=== PATIENT | male | born 1995 | race Caucasian/White ===

== ENCOUNTER 2017-12-26 01:53 | Emergency (ER) | payer BC, SELFPAY ==
[2017-12-26 01:58] VITALS: BP 145/106; PULSE 106; RESP 18; TEMP 36.8; O2SAT 97
--- NOTE | 2017-12-26 02:12 | ED.GENADUL_ITS ---
Disposition Clinical Impression: Nausea and vomiting, Toxic effect of mushrooms eaten as food Disposition: HOME Condition: Improving Instructions: Acute Nausea and Vomiting (ED) Additional Instructions: Poison control identified the mushrooms as toxic but self-limiting. You should continue to feel better throughout the day. Would stick with clear liquids for the first part of today. You may take Zofran provided if needed for recurrent nausea. Return to ED for worsening abdominal pain, recurrent/prolonged vomiting , jaundice, fever. Referrals: Quinton Goode MD [Primary Care Provider] - Medical Decision Making - Lab Data Results reviewed for labs ordered during visit: Yes - EKG Data -: EKG Interpreted by Me Interpretation: normal EKG - Medical Decision Making Poison control has identified the mushroom as corin hurtado and reports that it can cause severe nausea and vomiting for about 8 hours. It is otherwise self -limiting and requires supportive care only. IV is established and LR as well as Zofran given. EKG was obtained prior to Zofran being given because of his psychiatric medications. Patient's QT interval is normal. His EKG is sinus rhythm at [address] changes. Laboratory studies obtained. Patient's laboratory studies show a low potassium at 3.1. Otherwise unremarkable labs. Patient is better and tolerating p.o. after the Zofran. He does not wish to try to take potassium pill. Potassium should correct itself now that the vomiting has resolved. Patient to be discharged home as he is tolerating p.o. He will be given a Zofran ODT tab to use later today if needed. Return to ED for fever, worsening abdominal pain, persistent vomiting, jaundice. History of Present Illness - General Chief complaint: Nausea/Vomit/Diar Stated complaint: FOOD POISENING Time Seen by Provider: 12/26/17 02:10 Source: patient, family Mode of arrival: ambulatory Limitations: no limitations - History of Present Illness Initial comments: Patient presents to ED with nausea/vomiting and abdominal discomfort. Patient consumed wild mushrooms picked out of his family's yard. Everyone that consumed the mushroom is here in the ED ill. They have already sent pictures to poison control who has identified the mushroom and referred them all into us for evaluation. Mushrooms were consumed around 8 PM. Symptoms started around 11 PM. - Related Data Escitalopram [Lexapro] 10 mg PO DAILY tab-cap 06/02/17 Bupropion HCl [Wellbutrin Xl] 150 mg PO DAILY 12/26/17 Allergies Allergy/AdvReac Type Severity Reaction Status Date / Time No Known Allergies Allergy Unverified 12/26/17 02:18 Review of Systems Constitutional: denies: chills, fever Eyes: denies: vision change ENT: denies: congestion Respiratory: denies: cough, shortness of breath Cardiovascular: denies: chest pain Gastrointestinal: abdominal pain, nausea, vomiting. denies: diarrhea Genitourinary: denies: dysuria, hematuria Musculoskeletal: denies: back pain, arthralgia, myalgia Skin: denies: rash Neurological: denies: headache, weakness, numbness, paresthesias Past Medical History - Past Medical History Medical history: no medical history Surgical history: no surgical history Psychiatric history: anxiety, depression - Social History Smoking status: current everyday smoker Drug use: marijuana General Exam - General Limitations: no limitations General appearance: alert, in no apparent distress - Head Head exam: Present: atraumatic, normocephalic - Eye Eye exam: Absent: scleral icterus - Neck Neck exam: Present: normal inspection - Respiratory Respiratory exam: Present: normal lung sounds bilaterally - Cardiovascular Cardiovascular Exam: Present: normal rhythm, tachycardia, normal heart sounds - GI/Abdominal GI/Abdominal exam: Present: soft. Absent: distended, tenderness, guarding - Extremities Exam Extremities exam: Absent: tenderness, calf tenderness - Neurological Exam Neurological exam: Present: alert, oriented X3, CN II-XII intact. Absent: motor sensory deficit - Psychiatric Psychiatric exam: Present: normal affect, normal mood - Skin Skin exam: Present: warm, dry, intact Course Vital Signs - 24 hr 12/26/17 01:58 Temperature 98.2 F Pulse 106 H Respiratory 18 Rate Blood Pressure 145/106 Pulse Oximetry 97
[2017-12-26 02:22] LABS: Abs Immature Grans 0.04 k/cumm (0.0-0.09); Absolute Basophil Count 0.01 k/cumm (0.0-0.2); Absolute Eosinophil Count 0.01 k/cumm (0.0-0.7); Absolute Monocyte Count 0.43 k/cumm (0.11-0.7); Absolute Neutrophil Count 10.05 k/cumm (1.2-6.7); Basophils % 0.1; Eosinophils % 0.1; HCT 46.4 % (40.0-50.0); HGB 15.7 g/dL (13.5-17.5); Immature Grans % 0.3; Mean Corp. HGB Concentration 33.8 g/dL (32.0-36.0); Mean Corpuscular Hemoglobin 30.7 pg (27.0-33.0); Mean Corpuscular Volume 90.6 fL (80-95); Mean Platelet Volume 10.1 fL (8.0-11.0); Monocytes % 3.6; Neutrophils % 84.9; Platelet Count 286 x1000/uL (130-400); RBC 5.12 m/cumm (4.50-6.00); RBC Distribution Width 12.7 % (11.8-14.1); White Blood Cell Count 11.84 k/cumm (4.4-10.8)
[2017-12-26] MEDS: Ondansetron 4 MG/2 ML VIAL IVP (02:23)
[2017-12-26] MEDS: Lactated Ringers 1,000 ML 1000 ML IV (02:24)
[2017-12-26 02:37] LABS: ALT 26 U/L (12-78); AST 25 U/L (15-37); Albumin 4.5 g/dL (3.4-5.0); Alkaline Phosphatase 71 U/L (46-116); Anion Gap 12.2 mmol/L (3-11); BUN 20 mg/dL (7-18); Bilirubin, Total 0.8 mg/dL (0.2-1.0); CO2 26.8 mmol/L (21.0-32.0); CREATININE 1.24 mg/dL (0.70-1.30); Calcium 8.5 mg/dL (8.5-10.1); Chloride 103 mmol/L (98-107); Glucose 133 mg/dL (70-100); Potassium 3.1 mmol/L (3.5-5.1); Sodium 142 mmol/L (136-145); Total Protein 7.9 g/dL (6.4-8.2)
[2017-12-26 03:41] VITALS: BP 139/62; PULSE 86; RESP 18; TEMP 36.4; O2SAT 99
[2017-12-26] MEDS: Ondansetron O.D.T. 4 MG TABEF (03:59)
== END 2017-12-26 04:10 | disposition home or self-care (01) ==
PROVIDERS: Emergency Provider Emergency Medicine; PCP Pediatrics
DX: T62.0X1A Toxic effect of ingested mushrooms, accidental (unintentional), initial encounter (principal); R11.2 Nausea with vomiting, unspecified; E87.6 Hypokalemia; Z79.899 Other long term (current) drug therapy
CPT/HCPCS: 36415; 80053; 93005; 96361; 96374; 99284; 85025; 93010; 99285; J2405

== ENCOUNTER 2020-01-03 08:00 | Outpatient (CLI) | payer BC, SELFPAY ==
[2020-01-06 10:50] LABS: SARS-CoV-2 RNA Undetected (Undetected); SARS-CoV-2 Specimen Source Nasopharynx
== END 2020-01-03 08:20 ==
PROVIDERS: Visit Provider Family Medicine
DX: Z11.59 Encounter for screening for other viral diseases (principal)
CPT/HCPCS: U0003

== ENCOUNTER 2023-07-25 15:44 | Outpatient (CLI) | payer OTHER, BC, SELFPAY ==
--- NOTE | 2023-07-25 14:00 | DI.RAD_ITS ---
Exam(s) XR SHOULDER LT COMPLETE 2+V EXAM: XR SHOULDER LT COMPLETE 2+V CLINICAL HISTORY: LEFT SHOULDER PAIN. TECHNIQUE: 2D digital imaging was performed. Three views. COMPARISON: No exams were available for comparison FINDINGS: BONES: No acute fracture is present. No bony destructive lesion is seen. JOINTS: No dislocation present. AC joint not widened. Glenohumeral joint space is maintained. SOFT TISSUE: Normal. IMPRESSION: Unremarkable radiographs of the left shoulder. DATA REPOSITORY: RADIATION DOSE DELIVERED:
== END 2023-07-25 15:45 | disposition home or self-care (01) ==
LOC: DIORS 15:45
PROVIDERS: Visit Provider Physician Assistant
DX: M25.512 Pain in left shoulder (principal)
CPT/HCPCS: 73030

== ENCOUNTER → 2023-08-08 03:57 | Outpatient (CLI) | payer OTHER, BC, SELFPAY ==
--- NOTE | 2023-08-08 08:30 | DI.MRI_ITS ---
Exam(s) MR UPPER JOINT LT WO EXAM: MR UPPER JOINT LT WO CLINICAL HISTORY: INSTABILITY, ? LABRAL TEAR S43.005A DISLOCATION LEFT SHOULDER TECHNIQUE: Multiplanar multisequence MRI of the shoulder was performed. COMPARISON: CR XR SHOULDER LT COMPLETE 2+V from 07/25/2023 FINDINGS: MARROW:There is a shallow Hill-Sachs deformity on the posterior aspect of the humeral head with abund ant surrounding intraosseous edema in the humeral head evident. Some this edema extends down into th e neck. Also into the greater tuberosity. There is no truly defined fracture lines. There is no fr acture of the osseous glenoid. GLENOHUMERAL JOINT: Small joint effusion noted. Also mild synovial thickening noted. No degenerativ e subarticular cysts. ROTATOR CUFF MECHANISM: AC JOINT/ACROMIUM: AC joint appears unremarkable. No degenerative changes. No abnormal signal.. There is no evidence of os acromiale. Supraspinatus: There is a small focus of signal abnormality in the supraspinatus tendon but there is no full-thickness tear. There is a sliver of fluid in the subacromial bursa, best seen on the sagitt al images. Infraspinatus: Intact. No evidence of tear nor muscle atrophy. Teres Minor: Intact. No evidence of tear nor muscle atrophy. Subscapularis/anterior cuff: Intact. No abnormal signal at the level of the multipennate insertional fibers. No significant tear nor atrophy. BICEPS TENDON: Exhibits normal position within the intertubercular groove. No evidence of tear. Mild fluid in the tendon sheath. LABRUM: There is signal abnormality in the superior labrum posterior to the biceps insertion consiste nt with an element of SLAP tear. Extends into the superior aspect of the posterior labrum. There is a lso fluid signal interposed between the anterior labrum and osseous glenoid consistent with anterior labral tearing. There is no fracture nor bone edema within the anterior glenoid. The inferior recess is filled with fluid and somewhat capacious for this age group but there does not appear to be signif icant tearing of the inferior glenohumeral ligament. QUADRILATERAL SPACE: No evidence of mass in the region of the axillary nerve and dorsal circumflex hu meral vessels. Visualized triceps muscle at this level appears unremarkable. IMPRESSION: 1. There is a shallow Hill-Sachs deformity in the humeral head with abundant surrounding edema and al though there is no fracture of the osseous glenoid, there is tearing of the anterior labrum evident. There is also some tearing of the superior labrum posterior to the biceps insertion. The biceps tendo n itself appears intact and nondisplaced 2. Moderate size glenohumeral joint effusion but no evidence of loose intra-articular body. 3. Minimal rotator cuff findings. No evidence of significant rotator cuff tear despite the presence o f a sliver of fluid in the subacromial bursa. DATA REPOSITORY:
== END ==
PROVIDERS: Visit Provider Student in an Organized Health Care Education/Training Program
DX: S43.492A Other sprain of left shoulder joint, initial encounter (principal); X58.XXXA Exposure to other specified factors, initial encounter
CPT/HCPCS: 73221

== ENCOUNTER 2023-09-07 09:01 | Day surgery (SDC) | payer OTHER, SELFPAY ==
[2023-09-07] VITALS (13 sets, daily range): BP systolic 97–140; BP diastolic 50–86; PULSE 49–68; RESP 14–18; TEMP 36.3–36.8; O2SAT 96–100; BMI 25.9
--- NOTE | 2023-09-07 07:26 | W.PM.DSUDISC ---
Date of service: 09/07/23 Time of Service: 14:00 Discharge Plan Disposition Patient Disposition: Home Condition: Stable Discharge Details Attending Provider: Roberto Soria Primary Care Provider: Unknown,Unknown Home Meds and New Rx's Prescriptions: New naproxen 250 mg tablet 250 - 500 mg PO BID PRN (Reason: Moderate pain) Qty: 40 0RF oxycodone 5 mg tablet 5 - 10 mg PO Q4H PRN (Reason: Moderate to severe pain) Qty: 18 0RF Continued sertraline 100 mg tablet 100 mg PO DAILY Patient Comments: Patient taking 150mg PO Daily since 09/02/23. Discharge Instructions Additional Instructions: Surgery: Left shoulder arthroscopy with labral repair/stabilization and SLAP repair Activity: For 6 weeks, you should keep your arm at your side in a relatively neutral position at all times except for physical therapy. Do not try to lift or raise your arm using your own muscles. You should use the sling whenever you are out of the house. At home it is best to remove the sling and rest the arm on a pillow at your side or support the operative side with your other hand. You may allow the arm to dangle at your side. A physical therapy prescription will be sent electronically to begin in about 3 weeks. Postoperative protocol/ ROM restrictions: Weeks 0-3: 0 degrees external rotation Weeks 3-6: Maximum 30 degrees external rotation and 90 degrees forward elevation Weeks 6-8: Maximum 45 degrees external rotation and 120 degrees forward elevation Weeks 8+: Advance to full range of motion Weeks 10-12+: Start light biceps and rotator cuff strengthening with dynamic scapular stabilization Prescriptions: Naproxen 250 mg take 1-2 every 12 hours with a meal as needed for moderate pain Oxycodone 5 mg take 1-2 every 4-6 hours as needed for severe pain You may use bhzc-hvu-[id number] Tylenol (acetaminophen) as needed for mild pain. These pain medications may be taken all at once or in different combinations as needed. Also, recommend Colace (docusate) as a stool softener as surgery and pain medicine cause constipation. You may try grey-nqb-tycjvio diphenhydramine (Benadryl) 25-50 mg nightly as a sleep aid Dressings: Remove shoulder bandage after 3 days. Leave the sticky Steri-Strips in place until they fall off or remove them after you shower. Cover the incisions with Band-Aids or leave them open to air. You may shower after 5 days. Follow-up: 10-[address] Soria You may take off the leg compression stockings this evening at home. You may also leave them on a few days longer if you have a history of leg swelling or edema. Let us know right away if you develop any redness, drainage, fevers, chest pain, or trouble breathing. Do not drink alcohol or drive for at least 24 hours after anesthesia. Please call the office during business hours with any questions or concerns. Discharge Orders Discharge Orders: Discharge Order (Routine); Ordered 09/07/23 Ordered By: Mohsen Wong DS: Diagnosis Discharge Diagnosis (1) Superior labrum ldfvlrkp-dd-jxkkspjzr (SLAP) tear of left shoulder: Status: Acute (2) Bankart lesion of left shoulder: Status: Acute
--- NOTE | 2023-09-07 07:40 | ROE_ITS ---
Date of service: 09/07/23 Time of Service: 11:00 Operative Note Operative Note DATE OF PROCEDURE: 09/07/23 PRE-OP DIAGNOSIS: Left shoulder: 1. Labral tear 2. Slap tear POST-OP DIAGNOSIS: same PROCEDURE: Left shoulder arthroscopy with: 1. Labral repair/stabilization, CPT #22163: Involved suture anchor repair of the anterior and posterior labral tearing 2. SLAP repair, CPT #63833: Involved suture anchor repair of the biceps anchor/SLAP tear The botany laboratory assistant was medically required in order to help assist in techniques above, which require positioning the arm, holding the arthroscope, and manipulating multiple instruments and sutures at the same time. This cannot be done without the help of an experienced botany laboratory assistant. SURGEON: Roberto Soria INSIDE SALES RECRUITER: Mohsen Wong ANESTHESIA TYPE: Local By Surgeon, General LMA/ETT and Primary Nerve Block Refer to Anesthesia Record ESTIMATED BLOOD LOSS: 5 PATHOLOGY: none sent COMPLICATIONS: None Patient was transported to: PACU Patient's condition: stable Implants: Arthrex: 2.9mm bio composite PushLock anchors x5 Indications: The patient was diagnosed with the above conditions and appropriately indicated for surgical intervention. Please see complete medical record for details. Findings: Exam under anesthesia: Positive instability anterior subluxation and posterior mechanical sensation, but not readily dislocatable Glenohumeral joint: Obvious relatively fresh labral tear from about 7:00 through 10:00 and continuing through a SLAP tear with unstable biceps anchor, biceps tendon otherwise intact, and continuing posteriorly to about the equator 3 PM. No significant bone or cartilage loss. No loose bodies. Rotator cuff intact. Procedure Description: In the operating room, general anesthesia was induced. Bilateral shoulders were examined. The patient was positioned in the beachchair position. All bony prominences were well-padded. Preoperative antibiotics were administered. The shoulder was prepped and draped in the usual sterile fashion. The correct patient, procedure, and side of the procedure were all verified prior to incision. Starting through the posterior portal a standard complete diagnostic arthroscopy was performed of the glenohumeral joint including inspection of the long head of the biceps, anterior and superior labrum, subscapularis tendon, supraspinatus and infraspinatus tendons, and axillary recess. The glenoid and humeral head cartilage as well as the posterior labrum were inspected from an anterior viewing portal. Significant findings and interventions noted above. The usual anterior inferior and high portals were established using needle localization with the low portal directed just over the subscapularis towards the low part of the labral tear and the high portal directed at the anterior aspect of the SLAP tear. Mild labral and cartilage fraying was debrided. There was veliz anterior-inferior through anterior capsular labral and ligamentous tissue. Tissue mobilizer grasper was used to confirm appropriate reduction and mobilization the anterior inferior through anterior margin of the glenoid. The bone and tissue were debrided, abraded, and prepared to optimize healing. The lasso was used to shuttle a suture tape FiberLink offset inferiorly from the planned repair site incorporating good capsule ligamentous and labral tissue. The eccentric drill guide was then placed on the margin of the glenoid at about 7:30 PM, the drill passed, and then the repair suture loaded on the push lock anchor eyelet, which was deployed with excellent tissue reduction and fixation strength. The repair was continued similarly with an additional FiberLink suture tape and push lock anchor working more anteriorly at about 8:30 PM and 9:30 PM. These 3 anchors secured the labral repair and restored the tissue back to the face of the glenoid. More superiorly the tear continued into some redundant superior labrum tissue which was debrided to a more appropriate margin. The biceps anchor could be retracted into the superior part of the glenohumeral joint. Decision was made to proceed with SLAP repair. At the anterior junction of the biceps anchor the suture lasso was used to shuttle another suture tape FiberLink around the labrum, which was secured to an additional push lock anchor at the margin of the glenoid at around 11 PM. Attention was then turned to the posterior extension labral tear. An additional more lateral posterior portal was established anteriorly through the same capsular opening as the initial posterior portal. The suture lasso was used to secure the posterior labrum without incorporating much capsule 2:30 PM and secured to a last fifth push lock suture anchor. The anterior and posterior labral repairs had excellent reduction and tissue fixation strength. The biceps anchor SLAP tear was then probed and was nicely stabilized between the anterior superior SLAP repair anchor and the more posterior labral repair anchor. No additional posterior superior anchor was needed for the SLAP repair and purposely omitted to avoid over constraining the biceps anchor. The shoulder was drained of arthroscopic fluid. All portal sites were copiously irrigated. These incisions were closed using 3-0 Monocryl in a buried fashion and then covered with Mastisol, Steri-Strips, Xeroform, dry gauze, and ABDs. The dressings were covered and secured with Medipore tape. The operative extremity was placed into a sling for immobilization. The patient awoke from anesthesia without complication and was transferred to the recovery room in a stable condition.
[2023-09-07] MEDS: Lactated Ringers 1,000 ML 30 ML IV (09:35)
--- NOTE | 2023-09-07 09:35 | W.ANESPRE ---
General Info Date of Service Date Performed: 09/07/23 Height: 6 ft 3 in Weight: 94.2 kg Body Mass Index (BMI): 25.9 Surgical Procedure: Operation Date: 09/07/23 10:10 Proposed Procedure Side Surgeon p Shoulder Arthroscopy w/Labral Repair/Stabilization & Possible SLAP Repair Left Roberto Soria MD Pre-Op Diagnosis Post-Op Diagnosis Dislocation of left shoulder joint: Bankart lesion of left shoulder: Hill Sachs deformity, left: Superior labrum xiwmhung-js-lluiwmihr (SLAP) tear of left shoulder: Meds Allergies and Home Medications Allergies Allergy/AdvReac Type Severity Reaction Status Date / Time No Known Allergies Allergy Verified 09/07/23 09:12 Home Medication Medication Instructions Recorded sertraline 100 mg tablet 100 mg PO DAILY 07/25/23 Current Visit Medications: Current Medications Generic Name Dose Route Start Last Admin Trade Name Freq PRN Reason Stop Dose Admin Ringer's Solution 1,000 mls @ 30 mls/hr 09/07/23 06:00 IV 10/06/23 23:59 INFUSION RUTHY Cefazolin Sodium/Dextrose 2 gm in 50 mls @ 100 mls/hr 09/07/23 06:00 Ancef Duplex IVPB 09/07/23 16:00 PREOP RUTHY IV Miscellaneous Supplies 1 each 09/07/23 06:00 Iv Access IV 10/06/23 23:59 DIRECTED RUTHY Oxycodone HCl 0 mg 09/07/23 07:26 Oxycodone 5 Mg Tab PO 10/07/23 07:25 Q3H PRN PRN Pain Sodium Chloride 0 ml 09/07/23 06:00 Normal Saline Flush 10 Ml Syr IV 10/06/23 23:59 PRN PRN Sodium Chloride 0 ml 09/07/23 06:00 Normal Saline 10 Ml Vial IJ 10/06/23 23:59 DIRECTED PRN Sterile Water 0 ml 09/07/23 06:00 Water,Injection,Sterile 10 Ml Vial IJ 10/06/23 23:59 DIRECTED PRN PFSH Active Problems Active Problems: Problem Status Onset Code Superior labrum cegeeycc-qb-xeejlipne (SLAP) tear of left shoulder 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, left M21.822 Bankart lesion of left shoulder S43.492A Dislocation of left shoulder joint 07/14/23 S43.005A Medical History Medical History Depression Altitude sickness fall Surgical History Surgical History History of hip surgery Tobacco Smoking/Tobacco Use Status: Former Tobacco Use Alcohol Alcohol Intake: current Alcohol intake frequency: holidays/special occasions only Substance Use Substance use: Rarely Substance use type: marijuana Vital Signs and Lab Results Vital Signs Most Recent Vital Signs in EMR: Most Recent Vital Signs Temp Pulse Resp BP Pulse Ox 36.3 C L 68 18 140/86 99 09/07/23 09:15 09/07/23 09:15 09/07/23 09:15 09/07/23 09:15 09/07/23 09:15 Lab Results Blood Type / Crossmatch: No Data to Display Complete Blood Count: No Data to Display Complete Metabolic Panel: No Data to Display Liver Function Panel: No Data to Display Coagulation Panel: No Data to Display Cardiac Panel: No Data to Display Arterial Blood Gas: No Data to Display Venous Blood Gas: No Data to Display Pancreas Panel: No Data to Display Thyroid Panel: No Data to Display Infectious Disease: No Data to Display Blood Cultures: No Data to Display Toxicology Panel: No Data to Display Anesthesia Assessment and Plan Anesthesia History Personal History: No History of Anesthesia Complications Family History: No Family History of Anesthesia Complications Exercise Tolerance Exercise Tolerance: Metabolic Equivalents>4 Pertinent Negatives Pertinent Negatives: No Symptoms of GERD, No Major Cardiovascular Symptoms or Complaints, No Major Pulmonary Symptoms or Complaints and No History of CVA/TIA Cardiac & Pulmonary Exam Cardiac Exam: Normal S1/S2 Heart Sounds Pulmonary Exam: Clear Bilateral Breath Sounds Implantable Cardiac Device Does patient have a Pacemaker or an ICD?: No Airway Exam Known Difficult Airway: No Mallampati Class: 1 Mouth Opening: Normal (> 3cm) Thyromental Distance: Greater than 3 cm Neck Range of Motion: Full ROM Neck Circumference: Normal Teeth Condition: Normal Dentition ASA Classification ASA Score: ASA 2 Emergency Case?: No NPO Status NPO Status: NPO Clears >2 hours, Solids >8 hours Anesthesia Plan Resuscitation Status: Full Code Anesthesia Technique: General Anesthesia Airway Planned: Endotracheal Tube Pain Management: Surgeon and patient request nerve block Monitors Used: Standard Monitors
[2023-09-07] MEDS: ceFAZolin 2 GM/50 ML BAG IVPB (10:45)
[2023-09-07] MEDS: Tranexamic Acid 1,000 MG/10 ML VIAL 1000 MG (10:50)
[2023-09-07] MEDS: Normal Saline 100 ML 50 ML (10:50)
--- NOTE | 2023-09-07 10:55 | W.ANESNERVE ---
Nerve Block Single Injection Procedure Date and Time Date Performed: 09/07/23 Procedure Start: 10:08 Location Where Procedure Performed Procedure Location: Day Surgery Unit Reason Performed: Postoperative Analgesia Requesting Provider: Roberto Soria Timeout Performed Timeout Performed: Yes Monitoring Used ECG, Blood Pressure, SpO2 and See EMR for corresponding vital signs Sterility Sterility: Hand Hygiene, Surgical Cap, Surgical Mask, Sterile Gloves and Chlorhexidine Sedation Given During Procedure Sedation Given (Indicate Dose Given): Versed IV Dose:: 3mg Patient Mental Status Patient Mental Status: Sedate with meaningful communication Nerve Block 1st Nerve Block: Laterality: Left Block Type: Interscalene Ultrasound Image Saved?: Yes Needle / Catheter Used: 100mm SonoPlex II Local Anesthetic Bolus (Indicate Dose Given): Lidocaine used for local infiltration of skin, Injected in 3-5ml increments after negative blood aspiration, Bupivacaine 0.5% Dose:: 10mL and Exparel Dose:: 10mL Additives (Indicate Dose Given): None Ultrasound: Sterile probe cover and gel used Nerve Stimulator: Supplement to Ultrasound use Paresthesia: None Procedure Tolerated: No Complications and Patient tolerated well Procedure Outcome: Successful Performed By: Prachi Tipton Supervised By: Zackary Garcia
[2023-09-07] MEDS: EPINEPHrine 10 MG/10 ML ML (12:08)
--- NOTE | 2023-09-07 14:27 | W.ANESPOSTOP ---
Postoperative Evaluation Date, Time and Location Date Performed: 09/07/23 Time Performed: 14:27 Patient Location: Day Surgery Unit Vital Signs Most Recent Imported Vital Signs: Most Recent Vital Signs Temp Pulse Resp BP Pulse Ox 36.5 C 49 L 16 117/66 98 09/07/23 14:22 09/07/23 14:22 09/07/23 14:22 09/07/23 14:22 09/07/23 14:22 Pain Score Most Recent Pain Score: Most Recent Pain Score Pain Level 0 09/07/23 14:22 Assessment Mental Status: Awake (Alert & Oriented to Patient Baseline) Airway and Respiratory Function: Patent airway with normal (patient baseline) respiratory exam Cardiovascular Function: Hemodynamically Stable Hydration Status: Adequately Hydrated Nausea & Vomiting: No Nausea or Vomiting Pain: Pt. Denies Any Pain Peripheral Nerve Block: Regional nerve block not resolved at time of post operative discharge
== END 2023-09-07 16:18 | disposition home or self-care (01) ==
LOC: SUR 09:02
PROVIDERS: Visit Provider Student in an Organized Health Care Education/Training Program
PROC: (CPT 29805; principal; 2023-09-07 10:00)
DX: S43.432A Superior glenoid labrum lesion of left shoulder, initial encounter (principal); M21.822 Other specified acquired deformities of left upper arm; S43.492A Other sprain of left shoulder joint, initial encounter; W19.XXXA Unspecified fall, initial encounter
CPT/HCPCS: 29806; 76942; C9290; J0665; J0690; J1100; J2250; J2371; J2405; J2704